=== PATIENT | male | born 1995 | race Two or more races ===

== ENCOUNTER 2016-08-01 01:04 | Inpatient (IN) | payer OTHER ==
[2016-08-01] MEDS ORDERED: Ondansetron INJ* 2 MG/ML VIAL IV ONE ×2 (01:24→03:58)
[2016-08-01] MEDS ORDERED: NS 0.9% 1000 ML* 1,000 ML IV ONE (01:24)
[2016-08-01] MEDS ORDERED: Morphine INJ* 4 MG/ML 1 ML SYRINGE IV ONE (01:24)
[2016-08-01 01:59] LABS: Hematocrit 51 % (42-52); Hemoglobin 17.1 g/dl (14.0-18.0); Mean Corpuscular HGB Conc 34 g/dl (31-36); Mean Corpuscular Hemoglobin 31 pg (27-31); Mean Corpuscular Volume 90 fL (80-94); Mean Platelet Volume 10 um3 (7.4-10.4); Red Cell Distribution Width 12 % (10.5-15)
[2016-08-01 02:16] LABS: ALT 13 U/L (7-52); AST 21 U/L (13-39); Albumin 5.2 g/dL (3.2-5.2); Alkaline Phosphatase 67 U/L (34-104); Anion Gap 9 mmol/L (2-11); BUN/Creatinine Ratio 17.4 (8-20); Blood Urea Nitrogen 20 mg/dL (6-24); C Reactive Protein < 1.00 mg/L (< 5.00); CO2 Carbon Dioxide 27 mmol/L (22-32); Calcium 10.6 mg/dL (8.6-10.3); Chloride 100 mmol/L (101-111); EGFR African American 104.3 (>60); EGFR Non-African American 81.1 (>60); Globulin 2.9 g/dL (2-4); Glucose 113 mg/dL (70-100); Lipase 17 U/L (11.0-82.0); Magnesium 1.8 mg/dL (1.9-2.7); Potassium 4.4 mmol/L (3.5-5.0); Sodium 136 mmol/L (133-145); Total Protein 8.1 g/dL (6.4-8.9)
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
[2016-08-01] MEDS ORDERED: Iodixanol* (CONTRAST) 320 MG/ML 100 ML SDV IV ONE (03:00)
[2016-08-01 07:02] LABS: Urine Bilirubin Negative (Negative); Urine Glucose Negative (Negative); Urine Nitrite Negative (Negative)
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
[2016-08-01] MEDS ORDERED: HYDROmorphone* 1 MG/ML 1 ML SYR IV PRN (08:30)
[2016-08-01] MEDS ORDERED: Ondansetron INJ* 2 MG/ML VIAL IV PRN (08:30)
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
[2016-08-02 05:54] LABS: Hematocrit 46 % (42-52); Hemoglobin 15.7 g/dl (14.0-18.0); Mean Corpuscular HGB Conc 34 g/dl (31-36); Mean Corpuscular Hemoglobin 31 pg (27-31); Mean Corpuscular Volume 90 fL (80-94); Mean Platelet Volume 10 um3 (7.4-10.4); Red Blood Count 5.11 10^6/ul (4.0-5.4); Red Cell Distribution Width 12 % (10.5-15); White Blood Count 10.2 10^3/ul (3.5-10.8)
[2016-08-02 06:14] LABS: Albumin 4.1 g/dL (3.2-5.2); BUN/Creatinine Ratio 12.3 (8-20); C Reactive Protein 3.69 mg/L (< 5.00); Calcium 9.5 mg/dL (8.6-10.3); EGFR African American 114.5 (>60); EGFR Non-African American 89.1 (>60); Globulin 2.6 g/dL (2-4); Potassium 3.7 mmol/L (3.5-5.0); Total Bilirubin 1.4 mg/dL (0.2-1.0); Total Protein 6.7 g/dL (6.4-8.9)
--- NOTE | 2016-08-02 08:08 | RAD ---
INDICATION: Bowel obstruction. Pain. COMPARISON: CT August 01, 2016 TECHNIQUE: Erect and supine views of the abdomen are submitted. FINDINGS: Bones: There are no acute bony findings. Soft tissues: The soft tissues appear normal. The psoas margins are sharp. Bowel gas pattern: Normal Calcifications: There are no abnormal calcifications. Other: The stomach is partially decompressed with nasogastric tube IMPRESSION: NO ACUTE DIAGNOSTIC FINDINGS. PLEASE REFER ALSO TO CONCURRENT CT REPORT WHICH SUGGESTED A SMALL BOWEL OBSTRUCTION
--- NOTE | 2016-08-02 08:26 | PN ---
Progress Note - Progress Note SOAP: Subjective: Feels much better-passed some flatus, no abdominal pain, no BM Ambulating without problem Has good appetite Objective: Temp Pulse Resp BP Pulse Ox 97.9 F 91 16 127/66 100 08/02/16 07:30 08/02/16 07:30 08/02/16 08:15 08/02/16 07:30 08/02/16 07:30 Intake & Output 07/31/16 08/01/16 08/02/16 08/03/16 06:59 06:59 06:59 06:59 Intake Total 1000 4819 Output Total 1110 Balance 1000 3709 Weight 147 lb 147 lb Intake: IV Fluids 1000 4819 LR 2865 Oral 0 Output: NG Tube Drainage Amount 160 Urine 950 PEX: Comfortable Lungs are CTA Abd is soft and non-distended. No tenderness, bowel sounds are present and are normoactive. Ext without edema AXR--normal bowel pattern without SBO Assessment: SBO --improving Plan: D/C NGT Start po and observe.
[2016-08-02 21:03] VITALS: BP 129/52
== END 2016-08-02 21:30 | disposition home or self-care (01) | DRG 390 ==
LOC: ED 01:04 → SSU 08:30 → OBSVTOIN 08-02 10:13
PROVIDERS: ADMIT Surgery; ATTEND Surgery
PROC: 0D9670Z Drainage of Stomach with Drainage Device, Via Natural or Artificial Opening (ICD-10-PCS; principal; 2016-08-01)
DX: K56.5 Intestinal adhesions [bands] with obstruction (postinfection) (principal); L91.0 Hypertrophic scar; Z90.5 Acquired absence of kidney
CPT/HCPCS: 36415; 74020; 74177; 80053; 81003; 83605; 83690; 83735; 84484; 85025; 86140; 93005; G0378; J2270; J2405; Q9967

== ENCOUNTER 2017-07-05 21:20 | Observation (INO) | payer OTHER ==
[2017-07-05] MEDS ORDERED: NS 0.9% 1000 ML* 1,000 ML IV ONE (21:39)
[2017-07-05] MEDS ORDERED: Ondansetron INJ* 2 MG/ML VIAL IV ONE (21:39)
[2017-07-05 22:17] LABS: ABS Basophils 0 10^3/ul (0-0.2); ABS Eosinophils 0.1 10^3/ul (0-0.6); ABS Lymphocytes 1.5 10^3/ul (1.0-4.8); ABS Monocytes 0.4 10^3/ul (0-0.8); ABS Neutrophils 7.6 10^3/ul (1.5-7.7); ABS Nucleated RBC 0 10^3/ul; Eosinophil % 0.7 % (0-6); Hematocrit 49 % (42-52); Hemoglobin 17.1 g/dl (14.0-18.0); Lymphocyte % 15.4 % (25-47); Mean Corpuscular HGB Conc 35 g/dl (31-36); Mean Corpuscular Hemoglobin 31 pg (27-31); Mean Corpuscular Volume 89 fL (80-94); Mean Platelet Volume 9 um3 (7.4-10.4); Nucleated Red Blood Cells % 0; Platelet Count 171 10^3/ul (150-450); Red Cell Distribution Width 12 % (10.5-15); White Blood Count 9.5 10^3/ul (3.5-10.8)
[2017-07-05 22:32] LABS: EGFR Non-African American 71.6 (>60)
[2017-07-05] MEDS ORDERED: Morphine INJ* 4 MG/ML 1 ML CARPUJECT IV ONE (22:33)
[2017-07-05] MEDS ORDERED: Iohexol 300* (CONTRAST) 10 ML SDV IV ONE (22:48)
[2017-07-06 01:47] LABS: Urine Appearance Clear; Urine Blood Negative (Negative); Urine Color Yellow; Urine Ketones 1+ (Negative); Urine Protein Negative (Negative); Urine Specific Gravity 1.049 (1.010-1.030); Urine Urobilinogen Negative (Negative)
[2017-07-06] MEDS ORDERED: Acetaminophen SUPP* 650 MG SUPP PR PRN (02:14)
[2017-07-06] MEDS ORDERED: HYDROmorphone INJ* 1 MG/ML CARPUJECT SYRINGE IV PRN (02:14)
[2017-07-06] MEDS ORDERED: NS 0.9% 1000 ML* 1,000 ML IV ONE (02:15)
[2017-07-06] MEDS ORDERED: Ondansetron INJ* 2 MG/ML VIAL IV PRN (02:15)
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
[2017-07-06] MEDS: NS 0.9% 1000 ML* 1,000 ML IV SCH ×3 (05:38→21:33)
[2017-07-06 06:01] LABS: ABS Basophils 0 10^3/ul (0-0.2); ABS Eosinophils 0.1 10^3/ul (0-0.6); ABS Lymphocytes 2.2 10^3/ul (1.0-4.8); ABS Monocytes 0.8 10^3/ul (0-0.8); ABS Neutrophils 5.2 10^3/ul (1.5-7.7); ABS Nucleated RBC 0 10^3/ul; Eosinophil % 0.8 % (0-6); Hematocrit 42 % (42-52); Hemoglobin 14.8 g/dl (14.0-18.0); Lymphocyte % 26.3 % (25-47); Mean Corpuscular HGB Conc 35 g/dl (31-36); Mean Corpuscular Hemoglobin 31 pg (27-31); Mean Corpuscular Volume 88 fL (80-94); Mean Platelet Volume 9 um3 (7.4-10.4); Nucleated Red Blood Cells % 0.1; Platelet Count 145 10^3/ul (150-450); Red Blood Count 4.81 10^6/ul (4.0-5.4); Red Cell Distribution Width 12 % (10.5-15); White Blood Count 8.2 10^3/ul (3.5-10.8)
[2017-07-06 06:16] LABS: EGFR Non-African American 83.6 (>60)
--- NOTE | 2017-07-06 07:34 | RAD ---
CLINICAL HISTORY: Periumbilical pain COMPARISON: August 01, 2016 TECHNIQUE: Multiple contiguous axial CT scans were obtained of the abdomen and pelvis after the administration of intravenous contrast. Coronal and sagittal multiplanar reformations are submitted for review. Oral contrast was not administered. Delayed images were obtained through the abdomen and pelvis. FINDINGS: LUNG BASES: The lung bases are clear. LIVER: The liver is normal in shape, size, contour, and attenuation. BILE DUCTS: There is no intrahepatic or extrahepatic biliary dilatation. GALLBLADDER: The gallbladder is normal, without pericholecystic inflammatory change. PANCREAS: The pancreas is normal, without mass or ductal dilatation. SPLEEN: Normal in size and appearance. UPPER GI TRACT: Evaluation of the gastrointestinal tract is limited by incomplete gastric distention. The upper GI tract is unremarkable. SMALL BOWEL AND MESENTERY: There is distention with mild dilatation of the proximal small bowel with gradual transition to decompressed small bowel distally. COLON: The colon is normal in contour, course, caliber. There is no pericolonic inflammatory change. There is a tubular, vermiform, hollow viscus that is blind ending, and originates from the cecum, consistent with a normal appendix. There is no periappendiceal inflammatory change. This is best seen on axial images 58 through 67. ADRENALS: Normal bilaterally. KIDNEYS: The patient is status post right nephrectomy. On the left, there is no hydronephrosis or nephrolithiasis. BLADDER: The bladder is smooth in contour. PELVIC ORGANS: The prostate gland is normal. The seminal vesicles are symmetric. AORTA: The aorta is normal. IVC: Unremarkable LYMPH NODES: There is no lymphadenopathy by size criteria. ABDOMINAL WALL: There is no evidence for abdominal wall hernia. BONES AND SOFT TISSUES: There are mild diffuse degenerative changes. OTHER: There is trace amount of free fluid within the pelvis. IMPRESSION: 1. DISTENTION WITH MILD DILATATION OF SMALL BOWEL LOOPS WITH GRADUAL TRANSITION TO DECOMPRESSED LOOPS DISTALLY SUGGESTIVE OF EARLY OR PARTIAL SMALL BOWEL OBSTRUCTION. RECOMMEND ATTENTION ON FOLLOW-UP IMAGING. 2. STATUS POST RIGHT NEPHRECTOMY. 3. TRACE AMOUNT OF FREE FLUID WITHIN THE PELVIS.
[2017-07-06] MEDS: Pantoprazole IV* 40 MG IV SCH (08:43)
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
[2017-07-07] MEDS: NS 0.9% 1000 ML* 1,000 ML IV SCH (05:49)
[2017-07-07] MEDS: Pantoprazole IV* 40 MG IV SCH (08:27)
[2017-07-07 12:08] VITALS: BP 132/67
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
== END 2017-07-07 15:00 | disposition home or self-care (01) ==
LOC: ED 21:20 → SSU 07-06 02:12 → INTOOBSV 07-06 02:12
PROVIDERS: ADMIT Hospitalist; ATTEND Internal Medicine
DX: K56.600 Partial intestinal obstruction, unspecified as to cause (principal); Z90.5 Acquired absence of kidney
CPT/HCPCS: 36415; 74177; 80048; 80053; 81003; 83605; 83690; 85025; 86140; 96361; 96374; 96375; 99285; G0378; J2405; Q9967